=== PATIENT | male | born 1930 | race Caucasian/White ===

== ENCOUNTER 2017-07-20 08:21 | Day surgery (SDC) | payer BC ==
[~2017-07-20 08:21] MED LIST: ACETAMINOPHEN 1,000 MG/100 ML BTL IV ONE; FAMOTIDINE 20MG TABLET PO ONE; MECLIZINE 25 MG TABLET PO ONE; METOCLOPRAMIDE 10 MG TABLET PO ONE
[2017-07-20] MEDS ORDERED: MIDAZOLAM HCL 2MG/2ML VIAL IV ONE (08:22)
[2017-07-20] MEDS ORDERED: HYDROMORPHONE HCL 2 MG/ML VIAL IV ONE (08:22)
[2017-07-20] MEDS ORDERED: KETOROLAC 30 MG/ML VIAL IVP ONE (08:22)
[2017-07-20] MEDS ORDERED: BUPIVACAINE 0.25% W/EPI MPF 30ML VIAL IVP ONE (08:22)
[2017-07-20] MEDS ORDERED: SEVOFLURANE 250 ML INH ONE (08:22)
[2017-07-20] MEDS ORDERED: NEOSTIGMINE 1 MG/1 ML,10ML VIAL IV ONE (08:22)
[2017-07-20] MEDS ORDERED: HYDROCODONE/APAP 5/325MG TABLET PO ONE (08:22)
[2017-07-20] MEDS ORDERED: GLYCOPYRROLATE 0.2 MG/ML ML IV ONE (08:22)
[2017-07-20] MEDS ORDERED: SUCCINYLCHOLINE 20 MG/ML 10ML IVP ONE (08:22)
[2017-07-20] MEDS ORDERED: ROCURONIUM BROMIDE 50MG/5ML VIAL IV ONE (08:22)
[2017-07-20] MEDS ORDERED: FENTANYL PF 100MCG/2ML VIAL IV ONE (08:22)
[2017-07-20] MEDS ORDERED: ONDANSETRON HCL IV 4 MG/2 ML VIAL IVP ONE (08:22)
[2017-07-20] MEDS ORDERED: LIDOCAINE 2% MDV (20MG/ML) 20ML VIAL IV ONE (08:22)
[2017-07-20] MEDS ORDERED: PROPOFOL 10 MG/ML VIAL IV ONE (08:22)
[2017-07-20 09:35] LABS: BASO % 0.6 % (0-6); EOS % 5.5 % (0-6); HEMOGLOBIN 17.3 gm/dl (14.0-18.0); LYMPH % 28.9 % (16-45); MEAN CELL VOLUME 92.6 fl (81-97); MEAN CORPUSCULAR HEMOGLOBIN 32.7 pg (27-33); MEAN CORPUSCULAR HGB CONC 35.3 g/dl (32-36); PLATELET COUNT 156 K/uL (130-400); RED BLOOD COUNT 5.29 M/uL (4.40-5.70); RED CELL DISTRIBUTION WIDTH 13.3 % (11.5-14.5); WHITE BLOOD COUNT W/O DIFF 5.1 K/uL (4.2-12.2)
[2017-07-20 09:55] LABS: BLOOD UREA NITROGEN 17 mg/dL (8-23); CREATININE 0.9 mg/dL (0.7-1.2); EST GLOMERULAR FILTRATION RATE > 60 mL/min; GLUCOSE,RANDOM 104 mg/dL (74-109)
--- NOTE | 2017-07-21 12:40 | Operative Note ---
DATE OF SURGERY: 07/20/2017 Surgeon: Remigio Hilliard DO PREOPERATIVE DIAGNOSIS: Chronic cholecystitis with cholelithiasis. POSTOPERATIVE DIAGNOSIS: Acute cholecystitis. OPERATION: Laparoscopic cholecystectomy. Indication: The patient is an 86-year-old male who has been having ongoing right subcostal postprandial pain. He did have imaging study which did reveal either a large stone or a large polyp in the neck of the gallbladder. He is having ongoing postprandial discomfort. We did discuss nonoperative routes versus operative intervention. He desired surgical intervention. His risks include but are not limited to bleeding, infection, ductal injury, possible conversion to open, postoperative bile leak. He understood this fully. PROCEDURE: After consent was signed and questions answered, he was taken to the operating room and placed in a supine position. General anesthesia was administered per the department of anesthesia. The patient's abdomen was prepped and draped in the usual sterile fashion. At this time, adequate timeout was performed. He did receive preoperative DVT prophylaxis. At this time, the infraumbilical region was anesthetized with a total of 2 mL of 0.25% Sensorcaine with epinephrine. A 2 cm infraumbilical incision was made. This was carried down to the anterior rectus fascia. This was incised. Laith clamps were placed on the fascial edges and brought up into the wound. Stay sutures of 0 Vicryl were placed. Posterior rectus sheath was identified and incised. The peritoneal cavity was entered bluntly. At this time, a 10 mm blunt Steph port was placed. Adequate pneumoperitoneum was established. Under direct visualization, additional 5 mm epigastric and two 5 mm right subcostal ports were placed. The patient was then rotated into reverse Trendelenburg, rotation to left. The gallbladder was identified. It was covered with omentum and noted to be densely inflamed. The fundus was identified. This was lifted anteriorly. The omentum was swept away and instantly the gallbladder tore spilling nonpurulent bile. Further cephalad and lateral retraction were applied. The gallbladder kept tearing due to the inflamed nature. I did have to switch to a 10 mm angled lens to optimize visualization. The hepatocystic triangle was thoroughly dissected out. In fact, I could clearly see the common bile duct medial as well. I did have to switch to a dome down technique due to some limited visualization secondary to the inflammation. Therefore, the lip of the liver was grasped and held anteriorly. The gallbladder was then taken down in an antegrade fashion from above. This did cone down the inferior dissection where a large right hepatic artery was seen giving off a small short cystic artery. Again the common hepatic and common bile ducts were clearly seen as well as the takeoff of a fairly diminutive cystic duct. These were the only 2 structures left in the triangle of Calot. The cystic duct and cystic artery were both clipped and cut in a standard fashion. Gallbladder was then put in an EndoCatch bag and brought out infraumbilically. The right upper quadrant was then irrigated with about 1000 mL of sterile saline. There was no bleeding noted. No bile leaking noted. Due to the raw nature of the liver bed, I did apply 10 mL of FloSeal. The patient was leveled out. The pneumoperitoneum was released. All ports were removed. The fascia was closed with 0 Vicryl in a [id number] fashion. The skin of all 3 ports was closed with 4-0 Vicryl. The patient was taken to the recovery room in satisfactory condition. FINDINGS AT THE TIME OF SURGERY: Acute cholecystitis. CC: PARAM RODRIGUEZ MD, FACP MTDD
== END 2017-07-20 13:35 | disposition home or self-care (01) ==
LOC: SUR 08:21
PROVIDERS: ATTEND Surgery
DX: K81.0 Acute cholecystitis (principal); E78.00 Pure hypercholesterolemia, unspecified; H40.9 Unspecified glaucoma; F41.8 Other specified anxiety disorders; G40.89 Other seizures; I10 Essential (primary) hypertension; Z90.5 Acquired absence of kidney; Z87.891 Personal history of nicotine dependence
CPT/HCPCS: 47562; 00790; 85025; 80048; J1885; J2405; J3010; J1170; J0330; J2710